=== PATIENT | male | born 1985 | race Caucasian/White ===

== ENCOUNTER 2017-09-07 08:27 | Emergency (ER) | payer OTHER, SELFPAY ==
[2017-09-07 08:27] VITALS: BP 141/78; PULSE 74; RESP 18; TEMP 36.8; O2SAT 97; BMI 30.5
--- NOTE | 2017-09-07 08:37 | ED.VISSUMM ---
- ER Visit Summary Date of Service: 09/07/17 Chief Complaint: Right breast, axilla pain History of Present Illness: The patient is a 32 M who noted a painful lump to the right breast 3 days ago. Patient states he feels a painful swollen area in his right axilla. He denies fever, chills, cough, or weight loss. He does have a strong family history of cancer which concerns him. Patient does not have a primary care physician and states when he was called to establish as a new patient he was told he could not be seen until September 20. He was afraid to wait too long to be seen so he came to the emergency room. Physical Examination: Vital signs are unremarkable. Patient is in no acute distress. He is nontoxic appearing. Head neck examination is normal. Heart is regular rate and rhythm. Lung sounds are clear. Skin examination was no palpable mass over the right breast. There are no overlying skin changes. He has no palpable masses noted to the right axilla. No palpable lymph nodes. He has strong distal pulses. Test Results: Two-view chest x-ray is performed and is unremarkable. Emergency Department Course and Treatment: I did explain to the patient that he does require further workup likely with an ultrasound. I cannot palpate a mass at this time. Advised him that this is not a test that can be done in the emergency room. I am happy to refer him to a local primary care physician to be seen for this testing. Treatment Plan: [] Disposition: Discharge Impression: Subjective breast mass This note was generated with I Do Now I Don't dictation software. It may contain incorrect words, spelling, and punctuation that were not noted in review of the chart prior to signing ED Disposition - Plan for ED Patient: Chief Complaint: Wound Referrals: Care Physician,No Primary [Primary Care Provider] -
--- NOTE | 2017-09-07 08:45 | RAD_ITS ---
STUDY: X-RAY CHEST REASON FOR EXAM: Male, 32 years old. Chest pain. TECHNIQUE: PA and lateral views of the chest. COMPARISON: None. FINDINGS: The lungs are clear and expanded. Scattered calcified granulomas. There is no demonstrated pleural abnormality. Normal size heart. Normal mediastinum and andreea. Normal visualized pulmonary arteries. Normal visualized aortic arch and descending thoracic aorta. Normal visualized thoracic spine. Normal visualized ribs, clavicles, and shoulders. There is no demonstrated abnormality of the visualized soft tissue structures of the upper abdomen. RAD/Chest PA and Lateral IMPRESSION: Normal x-ray examination of the chest. Electronically Signed: Dustin Carreno MD at 9:00 EST Tel [phone], Service support ,
--- NOTE | 2017-09-07 09:14 | ED.DEP ---
ED Disposition - Plan for ED Patient: Disposition: Home or Assisted Living Chief Complaint: Wound Instructions: ED Breast Mass Uncertain Cause Referrals: Asuncion Chacon MD [STAFF PHYSICIAN] - As soon as possible
[2017-09-07 09:35] VITALS: BP 108/59; PULSE 67; RESP 14; O2SAT 98
== END 2017-09-07 09:37 | disposition home or self-care (01) ==
PROVIDERS: Emergency Provider Emergency Medicine
DX: N63.10 Unspecified lump in the right breast, unspecified quadrant (principal)
CPT/HCPCS: 71046; 99282; J7030